=== PATIENT | female | born 1970 | race Caucasian/White ===

== ENCOUNTER 2021-02-06 20:11 | Inpatient (IN) ==
[2021-02-06] MEDS ORDERED: Isovue-370 500 ML BOTTLE IVP ONE (20:41)
[2021-02-06 21:03] LABS: Hematocrit 46.6 % (35.3-44.9); Hemoglobin 16.4 g/dL (11.5-15.4); Mean Corpuscular HGB Conc 35.2 g/dL (31.6-35.5); Mean Corpuscular Hemoglobin 35.1 pg (28.0-33.3); Mean Corpuscular Volume 99.8 fL (83.0-100.0); Mean Platelet Volume 9.4 fL (9.4-12.4); Platelet Count 243 K/mcL (140-400); Red Blood Count 4.67 M/mcL (3.82-4.97); White Blood Count 15.6 K/mcL (4.3-11.1)
[2021-02-06 21:10] LABS: INR 1.1; Prothrombin Time 12.6 Seconds (9.4-12.1)
[2021-02-06 21:13] LABS: Activated Partial Thrombo Time 36.4 Seconds (26.0-36.0)
[2021-02-06 21:22] LABS: Lymphocytes # 1.6 K/mcL (0.6-4.6); Monocytes # 0.6 K/mcL (0.0-1.3); Neutrophils # 13.4 K/mcL (1.6-8.9); Platelet Estimate Normal (Normal)
[2021-02-06 21:43] LABS: Influenza A PCR Negative (Negative); Influenza B PCR Negative (Negative); Resp. Syncytial Virus PCR Positive (Negative)
[2021-02-06 21:45] LABS: SARS-CoV-2 by PCR (In House) Negative (Negative)
[2021-02-06] MEDS: Ipratropium/Albuterol Neb 3 ML IH ONE (21:51)
[2021-02-06 22:10] LABS: Alanine Aminotransferase 18 Units/L (7-52); Albumin 4.3 g/dL (3.5-5.7); Albumin/Globulin Ratio 1.4 (1.1-2.2); Alkaline Phosphatase 67 Units/L (34-104); Aspartate Amino Transferase 31 Units/L (13-39); BUN/Creatinine Ratio 11 (6-26); Bilirubin,Direct 0.1 mg/dL (0.0-0.2); Bilirubin,Indirect 0.5 mg/dL (0.0-1.0); Bilirubin,Total 0.6 mg/dL (0.3-1.0); Blood Urea Nitrogen 10 mg/dL (6-20); Calcium 8.5 mg/dL (8.6-10.3); Carbon Dioxide 22 mEq/L (23-29); Chloride 100 mEq/L (98-107); Globulin 3.1 g/dL (2.4-3.5); Glucose 127 mg/dL (70-105); Osmolality,Calculated 279 (280-300); Potassium 3.5 mEq/L (3.5-5.1); Sodium 134 mEq/L (136-145); Total Protein 7.4 g/dL (6.4-8.9); Troponin I < 0.03 ng/mL (< 0.04); eGFR For African Americans > 60 (> 60); eGFR For Non-African Americans > 60 (> 60)
[2021-02-06] MEDS ORDERED: predniSONE 20 MG TABLET PO ONE (23:21)
[2021-02-06] MEDS ORDERED: Azithromycin 250 MG TABLET PO ONE (23:28)
[2021-02-07] MEDS ORDERED: Naloxone 0.4 MG/ML INJ IVP PRN (00:09)
[2021-02-07] MEDS ORDERED: 0.9 % Sodium Chloride 1,000 ML IVC ONE ×2 (00:46→02:42)
[2021-02-07] MEDS: cefTRIAXone 1,000 MG in Water for inj. (sterile) 10 ML IVP SCH (01:23)
[2021-02-07 02:43] LABS: Basophils % 0.2 %; Hematocrit 40.9 % (35.3-44.9); Immature Granulocytes % 0.6 % (0-4); Lymphocytes # 1.1 K/mcL (0.6-4.6); Lymphocytes % 6.9 %; Mean Corpuscular HGB Conc 34.2 g/dL (31.6-35.5); Mean Corpuscular Hemoglobin 34.2 pg (28.0-33.3); Mean Platelet Volume 9.5 fL (9.4-12.4); Monocytes # 0.5 K/mcL (0.0-1.3); Monocytes % 3.2 %; Neutrophils # 14.4 K/mcL (1.6-8.9); Platelet Count 223 K/mcL (140-400); Red Blood Count 4.09 M/mcL (3.82-4.97); Red Cell Distribution Width 13.1 % (11.5-14.5); Segmented Neutrophils % 89.1 %; White Blood Count 16.1 K/mcL (4.3-11.1)
[2021-02-07] MEDS: Ondansetron 4 MG/2 ML VIAL IVP PRN ×2 (02:48→20:11)
[2021-02-07] MEDS ORDERED: Ipratropium/Albuterol Neb 3 ML ONE (02:55)
[2021-02-07 03:05] LABS: BUN/Creatinine Ratio 14 (6-26); Blood Urea Nitrogen 9 mg/dL (6-20); Calcium 7.7 mg/dL (8.6-10.3); Carbon Dioxide 18 mEq/L (23-29); Chloride 105 mEq/L (98-107); Glucose 149 mg/dL (70-105); Osmolality,Calculated 277 (280-300); Potassium 3.6 mEq/L (3.5-5.1); Sodium 133 mEq/L (136-145); eGFR For African Americans > 60 (> 60); eGFR For Non-African Americans > 60 (> 60)
[2021-02-07] MEDS: Ipratropium/Albuterol Neb 3 ML IH SCH ×3 (03:15→16:14)
[2021-02-07] MEDS: Ipratropium/Albuterol Neb 3 ML IH ONE (03:19)
[2021-02-07] MEDS: *HR* Enoxaparin 40 MG/0.4 ML SYRINGE SQ SCH (03:20)
[2021-02-07 06:38] LABS: VBG Ionized Calcium 1.04 mmol/L (1.15-1.35)
[2021-02-07] MEDS: predniSONE 20 MG TABLET PO SCH (08:29)
[2021-02-07] MEDS ORDERED: Acetaminophen 325 MG TABLET PO ONE (19:56)
[2021-02-07] MEDS ORDERED: *HR* LORazepam 2 MG/ML VIAL IVP ONE (19:56)
[2021-02-08 02:36] LABS: Basophils % 0.2 %; Eosinophils % 0.1 %; Hematocrit 41.8 % (35.3-44.9); Hemoglobin 14.6 g/dL (11.5-15.4); Immature Granulocytes % 0.4 % (0-4); Lymphocytes # 2.8 K/mcL (0.6-4.6); Mean Corpuscular HGB Conc 34.9 g/dL (31.6-35.5); Mean Corpuscular Volume 100.2 fL (83.0-100.0); Mean Platelet Volume 9.5 fL (9.4-12.4); Monocytes % 5.6 %; Neutrophils # 14.7 K/mcL (1.6-8.9); Platelet Count 233 K/mcL (140-400); Red Blood Count 4.17 M/mcL (3.82-4.97); Red Cell Distribution Width 13.1 % (11.5-14.5); Segmented Neutrophils % 78.7 %; White Blood Count 18.7 K/mcL (4.3-11.1)
[2021-02-08 02:59] LABS: BUN/Creatinine Ratio 19 (6-26); Blood Urea Nitrogen 11 mg/dL (6-20); Calcium 9.5 mg/dL (8.6-10.3); Carbon Dioxide 24 mEq/L (23-29); Chloride 105 mEq/L (98-107); Glucose 107 mg/dL (70-105); Osmolality,Calculated 282 (280-300); Potassium 3.7 mEq/L (3.5-5.1); Sodium 136 mEq/L (136-145); eGFR For African Americans > 60 (> 60); eGFR For Non-African Americans > 60 (> 60)
[2021-02-08] MEDS: Ipratropium/Albuterol Neb 3 ML IH SCH ×4 (03:18→15:17)
[2021-02-08] MEDS: *HR* Enoxaparin 40 MG/0.4 ML SYRINGE SQ SCH (05:41)
[2021-02-08] MEDS: predniSONE 20 MG TABLET PO SCH (08:33)
[2021-02-08] MEDS: cefTRIAXone 1,000 MG in Water for inj. (sterile) 10 ML IVP SCH (08:34)
[2021-02-08] MEDS: Azithromycin 500 MG in 0.9 % Sodium Chloride 250 ML IVPB SCH (08:35)
[2021-02-08] MEDS: Levalbuterol Neb 1.25 MG/3 ML IH SCH ×2 (19:58→23:14)
[2021-02-08 21:40] LABS: Adenovirus Not Detected (Not Detect); Bordetella Pertussis Not Detected (Not Detect); Chlamydophila pneumoniae Not Detected (Not Detect); Coronavirus 229E Not Detected (Not Detect); Coronavirus HKU1 Not Detected (Not Detect); Coronavirus NL63 Not Detected (Not Detect); Coronavirus OC43 Not Detected (Not Detect); Human Metapneumovirus Not Detected (Not Detect); Human Rhinovirus/Enterovirus Not Detected (Not Detect); Influenza A Subtype 2009 H1 Not Detected (Not Detect); Influenza B Not Detected (Not Detect); Mycoplasma pneumoniae Not Detected (Not Detect); Parainfluenza Virus 1 Not Detected (Not Detect); Parainfluenza Virus 2 Not Detected (Not Detect); Parainfluenza Virus 3 Not Detected (Not Detect); Parainfluenza Virus 4 Not Detected (Not Detect); Respiratory Syncytial Virus DETECTED (Not Detect); SARS-CoV-2 Not Detected (Not Detect)
[2021-02-08 23:20] LABS: ABG Base Excess 2 mEq/L (-2 to 3); ABG HCO3 26 mEq/L (21-27); ABG Oxygen Saturation 88 % (95-98); ABG PCO2 37 mmHg (35-45); ABG PH 7.45 pH Units (7.32-7.45); ABG PO2 51 mmHg (85-104); ABG TCO2 27 mEq/L (20-26)
[2021-02-09 03:01] LABS: Basophils # 0.1 K/mcL (0.0-0.2); Basophils % 0.3 %; Eosinophils % 0.1 %; Hemoglobin 13.4 g/dL (11.5-15.4); Immature Granulocytes % 0.7 % (0-4); Lymphocytes # 2.9 K/mcL (0.6-4.6); Lymphocytes % 18.7 %; Mean Corpuscular HGB Conc 33.5 g/dL (31.6-35.5); Mean Corpuscular Hemoglobin 33.9 pg (28.0-33.3); Mean Corpuscular Volume 101.3 fL (83.0-100.0); Mean Platelet Volume 9.6 fL (9.4-12.4); Monocytes # 0.7 K/mcL (0.0-1.3); Monocytes % 4.4 %; Neutrophils # 11.8 K/mcL (1.6-8.9); Platelet Count 252 K/mcL (140-400); Red Blood Count 3.95 M/mcL (3.82-4.97); Red Cell Distribution Width 13.2 % (11.5-14.5); Segmented Neutrophils % 75.8 %; White Blood Count 15.5 K/mcL (4.3-11.1)
[2021-02-09 03:33] LABS: BUN/Creatinine Ratio 18 (6-26); Blood Urea Nitrogen 12 mg/dL (6-20); Calcium 8.4 mg/dL (8.6-10.3); Carbon Dioxide 23 mEq/L (23-29); Chloride 105 mEq/L (98-107); Glucose 93 mg/dL (70-105); Osmolality,Calculated 283 (280-300); Potassium 3.4 mEq/L (3.5-5.1); Sodium 137 mEq/L (136-145); eGFR For African Americans > 60 (> 60); eGFR For Non-African Americans > 60 (> 60)
[2021-02-09] MEDS: Levalbuterol Neb 1.25 MG/3 ML IH SCH ×6 (04:26→22:48)
[2021-02-09] MEDS: *HR* Enoxaparin 40 MG/0.4 ML SYRINGE SQ SCH (05:58)
[2021-02-09] MEDS: predniSONE 20 MG TABLET PO SCH (09:02)
[2021-02-09] MEDS: Azithromycin 500 MG in 0.9 % Sodium Chloride 250 ML IVPB SCH (09:02)
[2021-02-09] MEDS: cefTRIAXone 1,000 MG in Water for inj. (sterile) 10 ML IVP SCH (10:32)
[2021-02-09] MEDS ORDERED: Potassium Chloride Elixir 20 MEQ/15 ML UDC PO ONE (10:39)
[2021-02-09] MEDS: MethylPREDNISolone 40 MG/ML VIAL IVP SCH (17:32)
[2021-02-10] MEDS: Levalbuterol Neb 1.25 MG/3 ML IH SCH ×3 (03:19→11:30)
[2021-02-10] MEDS: *HR* Enoxaparin 40 MG/0.4 ML SYRINGE SQ SCH (04:33)
[2021-02-10] MEDS: MethylPREDNISolone 40 MG/ML VIAL IVP SCH (05:37)
[2021-02-10] MEDS: cefTRIAXone 1,000 MG in Water for inj. (sterile) 10 ML IVP SCH (08:29)
[2021-02-10] MEDS: Azithromycin 500 MG in 0.9 % Sodium Chloride 250 ML IVPB SCH (08:29)
[2021-02-10 10:32] VITALS: BP 116/74; PULSE 83; TEMP 97.3
[2021-02-10 11:18] VITALS: O2SAT 94
== END 2021-02-10 13:52 | disposition home or self-care (01) | DRG 871 ==
LOC: EMEROOARM 20:11 → 3BNU 20:11 → SUATTDRO 02-07 00:02 → 3BNU 02-07 00:48
PROVIDERS: ADMIT Internal Medicine; ATTEND Internal Medicine